=== PATIENT | male | born 1985 | race Caucasian/White ===

== ENCOUNTER 2016-11-05 13:41 | Emergency (ER) | payer MEDICAID, OTHER ==
[~2016-11-05] VITALS: Ht 182.9 cm; Wt 97.5 kg
[~2016-11-05 13:41] MED LIST: AZIT250T5 PO; CYCL5TAB89 PO; IBUP-1174 PO; IBUP800T24 PO; METH4PAK PO
[2016-11-05 13:54] VITALS: BP 126/79
== END 2016-11-05 14:29 | disposition left against medical advice (07) ==
LOC: ER 13:41
DX: L02.212 Cutaneous abscess of back [any part, except buttock and flank] (principal); L02.414 Cutaneous abscess of left upper limb; Z53.21 Procedure and treatment not carried out due to patient leaving prior to being seen by health care provider

== ENCOUNTER 2019-01-06 12:24 | Emergency (ER) | payer MEDICAID, OTHER ==
[~2019-01-06] VITALS: Ht 182.9 cm; Wt 96.6 kg
[~2019-01-06 12:24] MED LIST changes: -AZIT250T5 PO; +AZIT250T7 PO
[2019-01-06] MEDS ORDERED: NITROGLYCERIN 0.4 MG SL TAB SL ONE (12:45)
[2019-01-06] MEDS ORDERED: ASPirin 81 mg TAB PO ONE (12:45)
[2019-01-06 14:35] LABS: Basophils # (auto) 0 uL; Basophils % (auto) 0.4 % (0.0-2.0); Eosinophils # (auto) 0.2 uL; Eosinophils % (auto) 1.7 % (0.0-7.0); Hematocrit 48.2 % (41.0-53.0); Hemoglobin 15.9 g/dL (13.5-17.5); Lymphocytes # (auto) 2.5 uL; Lymphocytes % (auto) 25.6 % (10.0-50.0); Mean Corpuscular Hemoglobin 30.3 pg (28.0-32.0); Mean Corpuscular Hgb Conc. 33.1 g/dL (32.0-36.0); Mean Corpuscular Volume 91.7 fL (80.0-100.0); Monocytes # (auto) 0.6 uL; Monocytes % (auto) 6.4 % (0.0-12.0); Neutrophils # (auto) 6.4 uL; Neutrophils % (auto) 65.9 % (37.0-80.0); Platelet Count (auto) 260 10^3/uL (140-450); Red Blood Cells 5.26 10^6/uL (4.5-5.90); Red Cell Distribution Width 13.8 % (11.8-14.3); White Blood Cell 9.7 10^3/uL (4.4-10.8)
[2019-01-06 15:02] LABS: Alanine Aminotransferase 20 U/L (16-61); Alkaline Phosphatase 86 U/L (45-117); Anion Gap 8 (5-15); Aspartate Aminotransferase 14 U/L (15-37); BUN/Creatinine Ratio 12.7; Blood Urea Nitrogen 14 mg/dL (7-18); Carbon Dioxide 23 mmol/L (21-32); Chloride 107 mmol/L (98-107); GFR African American 98 mL/min; GFR Non-African American 81 mL/min; Glucose 93 mg/dL (74-106); Sodium 138 mmol/L (136-145)
[2019-01-06 15:03] LABS: Albumin 3.4 g/dL (3.4-5.0); Bilirubin, Total 0.3 mg/dL (0.2-1.0); Calcium 8.5 mg/dL (8.5-10.1); Total Protein 7.2 g/dL (6.4-8.2)
[2019-01-06 17:30] VITALS: BP 125/81
== END 2019-01-06 17:41 | disposition home or self-care (01) ==
LOC: ER 12:34
DX: R07.89 Other chest pain (principal); F17.210 Nicotine dependence, cigarettes, uncomplicated; Z79.899 Other long term (current) drug therapy
CPT/HCPCS: 36415; 71046; 80053; 84484; 85025; 93005

== ENCOUNTER 2020-02-24 10:20 | Emergency (ER) | payer OTHER ==
[~2020-02-24] VITALS: Ht 182.9 cm; Wt 99.8 kg
[~2020-02-24 10:20] MED LIST changes: -AZIT250T7 PO; +AZIT250T9 PO
[2020-02-24] MEDS ORDERED: cefTRIAXone 1GM/50ML D5W 50 ML IV ONE (11:15)
[2020-02-24] MEDS ORDERED: HYDROmorphone HCL 2 MG/ML VL IV ONE (11:15)
[2020-02-24] MEDS ORDERED: ONDANSETRON HCL 4 MG/2 ML VIAL IV ONE (11:15)
[2020-02-24] MEDS ORDERED: LIDOCAINE 1% HCL (LOCAL ANESTH.) INJ 20ML MDV ONE (11:36)
[2020-02-24 12:19] VITALS: BP 128/81
[2020-02-24] MEDS ORDERED: LIDOCAINE 1% HCL (LOCAL ANESTH.) INJ 20ML MDV IJ ONE (14:15)
== END 2020-02-24 14:06 | disposition short-term general hospital (02) ==
LOC: EDBD 10:20 → ER 10:20
DX: S22.31XA Fracture of one rib, right side, initial encounter for closed fracture (principal); R06.03 Acute respiratory distress; J93.9 Pneumothorax, unspecified; J94.2 Hemothorax; F17.210 Nicotine dependence, cigarettes, uncomplicated; R51.9 Headache, unspecified; Z79.899 Other long term (current) drug therapy; V49.49XA Driver injured in collision with other motor vehicles in traffic accident, initial encounter; Y93.89 Activity, other specified; Y92.488 Other paved roadways as the place of occurrence of the external cause; Y99.8 Other external cause status
CPT/HCPCS: 32551; 70450; 71045; 71250; 72125; 73030; 74176; 93005; 96365; 96375; 99291; J0696; J1170; J2001; J2405